=== PATIENT | male | born 1955 | race Caucasian/White ===

== ENCOUNTER → 2016-09-14 | Outpatient (CLI) | payer OTHER ==
--- NOTE | 2016-09-14 13:28 | DIAGNOSTIC IMAGING REPORT ---
RIGHT HAND MIN 3 VIEWS CLINICAL HISTORY: Right hand pain COMPARISON: None. DISCUSSION: No acute fractures are visualized. There is an old deformity involving the proximal phalanx of the fifth finger. There is an old ununited ulnar styloid avulsion. There are no erosive or destructive changes. IMPRESSION: 1. No acute fractures. 2. No evidence of erosive disease. Electronically signed by: Jeffery Gallo M.D. 09/14/2016 1:26 PM Dictated Date/Time: 09/14/2016 1:25 PM
== END | disposition home or self-care (01) ==
LOC: C.RDSM 12:51
PROVIDERS: ATTEND Family Medicine
DX: M79.641 Pain in right hand (principal)

== ENCOUNTER → 2016-09-28 | Outpatient (CLI) | payer OTHER ==
--- NOTE | 2016-09-28 11:16 | DIAGNOSTIC IMAGING REPORT ---
RIGHT HAND 3 VIEWS CLINICAL HISTORY: Right hand injury. FINDINGS: 3 views of the right hand are compared to study dated 09/14/2016. The skeletal structures are well mineralized. No fracture is identified. Minimal osteoarthritic change is noted involving the interphalangeal joints and the first carpometacarpal joint. No erosive change is identified. The overlying soft tissues are within normal limits. IMPRESSION: No acute bony abnormality is identified in the right hand. Electronically signed by: Kevin Ace M.D. 09/28/2016 11:15 AM Dictated Date/Time: 09/28/2016 11:14 AM
== END | disposition home or self-care (01) ==
LOC: C.RDSM 10:25
PROVIDERS: ATTEND Family Medicine
DX: M79.643 Pain in unspecified hand (principal)

== ENCOUNTER → 2016-10-23 | Outpatient (CLI) | payer OTHER | END | disposition home or self-care (01) | LOC: C.RDSM 08:48 | PROVIDERS: ATTEND Physical Medicine & Rehabilitation Sports Medicine | DX: M25.561 Pain in right knee (principal) ==

== ENCOUNTER → 2017-02-20 | Outpatient (CLI) | payer OTHER ==
[2017-02-20 09:54] LABS: ESTIMATED AVERAGE GLUCOSE 94 mg/dl; HA1C FLAG Normal (Normal)
[2017-02-20 10:01] LABS: ALT/SGPT 39 U/L (12-78); AST/SGOT 29 U/L (15-37); BLOOD UREA NITROGEN 23 mg/dl (7-18); BUN/CREATININE RATIO 25.2 (10-20); CARBON DIOXIDE 27 mmol/L (21-32); CHLORIDE 108 mmol/L (98-107); CREATININE 0.91 mg/dl (0.60-1.40); GLUCOSE 87 mg/dl (70-99); POTASSIUM 4.1 mmol/L (3.5-5.1); SODIUM 144 mmol/L (136-145)
[2017-02-20 10:12] LABS: ALB/GLOB RATIO 1.2 (0.9-2); ALKALINE PHOSPHATASE 95 U/L (45-117); CHOLESTEROL 214 mg/dl (0-200); CHOLESTEROL/HDL RATIO 4.7; HDL CHOLESTEROL 46 mg/dl; LDL CHOLESTEROL CALCULATED 135 mg/dl; TRIGLYCERIDES 167 mg/dl (0-150); VERY LOW DENSITY LIPOPROT CALC 33 mg/dl
[2017-02-20 13:22] LABS: CALCIUM 9.2 mg/dl (8.5-10.1)
== END | disposition home or self-care (01) ==
LOC: C.LAB 08:13
PROVIDERS: ATTEND Nurse Practitioner
DX: R73.01 Impaired fasting glucose (principal); E03.9 Hypothyroidism, unspecified; E78.5 Hyperlipidemia, unspecified; E80.4 Gilbert syndrome

== ENCOUNTER → 2017-03-07 | Outpatient (CLI) | payer OTHER ==
[2017-03-07 14:39] LABS: BASO % 0.2 %; BASO ABS # 0.02 K/uL (0-0.2); COMPLETE YES; EOS % 0.5 %; HEMATOCRIT 47.1 % (42-52); IG% 0.6 %; LYMPH % 21.7 %; LYMPH ABS # 2.09 K/uL (1.2-3.4); MEAN CELL VOLUME 88.5 fL (80-100); MEAN CORPUSCULAR HEMOGLOBIN 32.3 pg (25-34); MEAN CORPUSCULAR HGB CONC 36.5 g/dl (32-36); MEAN PLATELET VOLUME 9.6 fL (7.4-10.4); MONO % 7.5 %; NEUT % 69.5 %; PLATELET COUNT 231 K/uL (130-400); RED BLOOD COUNT 5.32 M/uL (4.7-6.1); WHITE BLOOD COUNT 9.64 K/uL (4.8-10.8)
[2017-03-12 01:34] LABS: HEPATITIS BE ANTIBODY TC 556 Nonreactive
== END | disposition home or self-care (01) ==
LOC: C.LAB 13:23
PROVIDERS: ATTEND Nurse Practitioner
DX: Z11.59 Encounter for screening for other viral diseases (principal); E80.6 Other disorders of bilirubin metabolism

== ENCOUNTER → 2017-03-09 | Outpatient (CLI) | payer OTHER ==
--- NOTE | 2017-03-09 08:10 | DIAGNOSTIC IMAGING REPORT ---
(LIVER) ABDOMEN LIMITED CLINICAL HISTORY: E80.6 Hyperbilirubinemia COMPARISON STUDY: CT scan dated 03/04/2009 FINDINGS: The pancreas was poorly visualized. No focal hepatic masses were visualized. There is no ductal dilatation. The common bile duct measured 5 mm. No gallstones are identified. There is no right-sided hydronephrosis. IMPRESSION: 1. Ultrasonographically normal gallbladder 2. Ultrasonographically normal liver. No evidence of ductal dilatation 3. Nondiagnostic evaluation of the pancreas Electronically signed by: Jeffery Gallo M.D. 03/09/2017 8:09 AM Dictated Date/Time: 03/09/2017 8:07 AM
== END | disposition home or self-care (01) ==
LOC: C.ULTRBC 07:32
PROVIDERS: ATTEND Nurse Practitioner
DX: E80.6 Other disorders of bilirubin metabolism (principal)

== ENCOUNTER → 2017-08-29 | Outpatient (CLI) | payer OTHER ==
[2017-08-29 10:12] LABS: BLOOD UREA NITROGEN 19 mg/dl (7-18); CALCIUM 8.8 mg/dl (8.5-10.1); CARBON DIOXIDE 28 mmol/L (21-32); CREATININE 0.85 mg/dl (0.60-1.40); GLUCOSE 87 mg/dl (70-99); POTASSIUM 4.2 mmol/L (3.5-5.1); SODIUM 138 mmol/L (136-145)
[2017-08-29 10:16] LABS: CHOLESTEROL 184 mg/dl (0-200); LDL CHOLESTEROL CALCULATED 104 mg/dl
== END | disposition home or self-care (01) ==
LOC: C.LAB 08:11
PROVIDERS: ATTEND Nurse Practitioner
DX: E78.5 Hyperlipidemia, unspecified (principal); E80.6 Other disorders of bilirubin metabolism

== ENCOUNTER 2022-09-18 07:44 | Observation (INO) ==
--- NOTE | 2022-09-01 14:39 | PAT Medication Instructions ---
Medication Instructions Date of Service September 01, 2022 Home Medications Medication Instructions Recorded varicella-zoster glycoE vacc-AS01B 0.5 ml IM .COMPLEX #1 ea 10/06/19 adj(PF) 50 mcg/0.5 mL IM susp, kit (Shingrix (PF)) diclofenac sodium 1 % topical gel 2 gm topical QID #100 grams 03/16/20 hydrocortisone 1 %-pramoxine 1 % 1 applic LA QID PRN hemorrhoids 12/03/20 rectal foam (Proctofoam HC) #10 grams promethazine-DM 6.25 mg-15 mg/5 mL 5 ml PO Q6H PRN cough #473 mL 12/03/20 oral syrup glucosamine 750 py-vvpordstify-vrq no1 644 mg-C 30 mg-kirstie 1 mg tablet (Osteo Bi-Flex Triple Strength) 2 tab PO QAM multivitamin 1 tab PO QAM naproxen sodium 220 mg capsule (Aleve) 220 mg PO BID PRN varicella-zoster glycoE [id number]-AS01B adj(PF) 50 mcg/0.5 mL IM susp, kit (Shingrix (PF)) 0.5 ml IM .COMPLEX diclofenac sodium 1 % topical gel 2 gm topical QID hydrocortisone 2.5 % rectal cream with applicator 1 ea topical BID PRN hydrocortisone 1 %-pramoxine 1 % rectal foam (Proctofoam HC) 1 applic LA QID PRN promethazine-DM 6.25 mg-15 mg/5 mL oral syrup 5 ml PO Q6H PRN psyllium husk 3.4 gram/5.4 gram oral powder (Metamucil) 1 tbsp PO PM diltiazem HCl 180 mg capsule,extended release 24 hr 180 mg PO PM levothyroxine 75 mcg tablet 75 mcg PO QAM lisinopril 10 mg tablet 10 mg PO PM omeprazole 40 mg capsule,delayed release 40 mg PO PM rosuvastatin 20 mg tablet 20 mg PO PM tamsulosin 0.4 mg capsule 0.4 mg PO QAM ASK your surgeon for instructions naproxen sodium 220 mg capsule (Aleve) 220 mg PO BID PRN STOP taking 2 weeks before surgery glucosamine 750 sd-qzqvnbpwuqu-dvr no1 644 mg-C 30 mg-kirstie 1 mg tablet (Osteo Bi-Flex Triple Strength) 2 tab PO QAM multivitamin 1 tab PO QAM STOP taking 24 hours before surgery diclofenac sodium 1 % topical gel 2 gm topical QID hydrocortisone 2.5 % rectal cream with applicator 1 ea topical BID PRN hydrocortisone 1 %-pramoxine 1 % rectal foam (Proctofoam HC) 1 applic LA QID PRN DO NOT take the morning of surgery promethazine-DM 6.25 mg-15 mg/5 mL oral syrup 5 ml PO Q6H PRN Take morning of surgery With a small sip of water, OTHERWISE NOTHING TO EAT OR DRINK AFTER MIDNIGHT: levothyroxine 75 mcg tablet 75 mcg PO QAM tamsulosin 0.4 mg capsule 0.4 mg PO QAM Take evening before surgery psyllium husk 3.4 gram/5.4 gram oral powder (Metamucil) 1 tbsp PO PM diltiazem HCl 180 mg capsule,extended release 24 hr 180 mg PO PM lisinopril 10 mg tablet 10 mg PO PM omeprazole 40 mg capsule,delayed release 40 mg PO PM rosuvastatin 20 mg tablet 20 mg PO PM Other Notes If you have any questions please call us at [phone] or [phone] or [phone] or [phone]
--- NOTE | 2022-09-08 09:15 | Anesthesiology Consultation ---
Date of Service September 08, 2022 Assessment & Plan (1) Encounter for pre-operative examination: - COVID screening: Per assessment on 09/08: No known COVID-19 positive contacts or current COVID-19 related symptoms. Travel screen negative. Patient vaccinated. At surgeon discretion if preop Covid testing being done. - Outpatient joint assessment: Pt currently scheduled for inpatient pathway. Reviewed with Dr. Delgado If surgeon requests review for outpatient joint pathway, patient not recommended candidate for outpatient joint program from anesthesia standpoint. - Cardiology office visit (12/05/21): "Patient remains physically active and exercises on a daily basis. He served in the for 21 years, was a long distance runner in the past, and he still walks a minimum of 3.5 to 4 miles per day and he lifts weights on a daily basis -- but now he wears a brace on his right knee due to some knee problems. He states that his walking route includes a rather large hill on the way back to his home -- which he can easily climb without limiting cardiopulmonary symptoms at any time. Patient has not experienced any angina pectoris or anginal equivalent symptoms, overt signs or symptoms heart failure, nor has he had any symptoms suggestive of dysrhythmia. His blood pressure appears to be well controlled. He does not experience claudication despite his active lifestyle. We reviewed his most recent Echocardiogram 11/07/21 which showed regression of his LVH, now it is moderate LVH and there is no evidence of LVOT obstruction. LVEF 65% to 70% with normal wall motion, no significant valvular abnormalities.. Patient was advised to do the following.. Continue exercise program and progress as tolerated.. Maintain a heart healthy diet.. Continue Rosuvastatin 20 mg daily.. Continue Lisinopril 10 mg daily.. Continue Diltiazem CD 180 mg daily." Mild dynamic LVOT obstruction noted on remote stress echo 2019- no evidence on more recent echo 10/2021. F/U one year recommended. Repeat Echo in 2 years. - Cardiology note (07/06/22): Written in regards to parotidectomy- done 06/2022 at [facility] > 06/2022 EKG reviewed, "Patient is cleared for surgery.. No need for further workup at this time" - Murmur: III/ systolic murmur LUSB noted. No murmur appreciated per 11/2021 ca rdiology office visit. Reviewed with Dr. Delgado- requesting cardiology advisement. Spoke with Talib Phan 09/08/22- he feels it would be reasonable to update echo prior to surgery if possible. Echo scheduled 09/12 ([facility])- awaiting report. Chart Review Chart Review: Patient seen in Pre Admission Testing Teaching & Discussion Pre-Anesthesia Teaching/Discussion Notes: Instructed NPO after midnight before surgery,except medications with 15 cc of water. Medication instructions provided according to the PAT guidelines. History Surgery Operation Date: 09/18/22 12:30 Proposed Procedures p Right Total Knee Arthroplasty - Neal Rae MD Height/Weight Height: 5 ft 8 in Weight: 86 kg Allergies Allergy/AdvReac Type Severity Reaction Status Date / Time No Known Drug Allergies Allergy Verified 09/01/22 08:54 Medications Home Medications Medication Instructions Recorded Confirmed Last Taken glucosamine 750 ig-qkdqqduhhvk-tkr 2 tab PO QAM 01/23/19 09/01/22 Unknown no1 644 mg-C 30 mg-kirstie 1 mg tablet (Osteo Bi-Flex Triple Strength) multivitamin 1 tab PO QAM 10/06/19 09/01/22 Unknown naproxen sodium 220 mg capsule 220 mg PO BID PRN Pain 10/06/19 09/01/22 Unknown (Aleve) varicella-zoster glycoE vacc-AS01B 0.5 ml IM .COMPLEX #1 ea 10/06/19 09/01/22 Unknown adj(PF) 50 mcg/0.5 mL IM susp, kit (Shingrix (PF)) diclofenac sodium 1 % topical gel 2 gm topical QID #100 grams 03/16/20 09/01/22 Unknown hydrocortisone 2.5 % rectal cream 1 ea topical BID PRN Pain 05/19/20 09/01/22 Unknown with applicator hydrocortisone 1 %-pramoxine 1 % 1 applic IN QID PRN hemorrhoids 12/03/20 09/01/22 Unknown rectal foam (Proctofoam HC) #10 grams promethazine-DM 6.25 mg-15 mg/5 mL 5 ml PO Q6H PRN cough #473 mL 12/03/20 Unknown oral syrup psyllium husk 3.4 gram/5.4 gram 1 tbsp PO PM 12/05/21 09/01/22 Unknown oral powder (Metamucil) diltiazem HCl 180 mg 180 mg PO PM 09/01/22 09/01/22 Unknown capsule,extended release 24 hr levothyroxine 75 mcg tablet 75 mcg PO QAM 09/01/22 09/01/22 Unknown lisinopril 10 mg tablet 10 mg PO PM 09/01/22 09/01/22 Unknown omeprazole 40 mg capsule,delayed 40 mg PO PM 09/01/22 09/01/22 Unknown release rosuvastatin 20 mg tablet 20 mg PO PM 09/01/22 09/01/22 Unknown tamsulosin 0.4 mg capsule 0.4 mg PO QAM 09/01/22 09/01/22 Unknown Past Medical History Medical History Arthritis Barretts esophagus BPH (benign prostatic hyperplasia) Chronic reflux esophagitis [place] syndrome History of COVID-19 01/2022 Hyperlipidemia Hypertension Hypothyroidism LVH (left ventricular hypertrophy) Follows with [facility] Leach's ring Exercise / Class Metabolic Activity II 4-5 Yardwork/Stairs/Walk up hill Past Family History Family History Mother Breast cancer Father Dementia Denies family history of Ovarian cancer Prostate cancer Myocardial infarction Colorectal cancer Past Surgical History Surgical History H/O basal cell carcinoma excision Multiple ("different locations on body") History of colonoscopy History of esophagogastroduodenoscopy (EGD) Hx of surgical procedure cyst to right neck removed ([facility] 06/2022) S/P hernia surgery x5 S/P knee surgery right arthroscopy S/P vasectomy S/P wisdom tooth extraction Past Anesthesia History No Family Hx of Anesthesia Complications and Other (Amnesia after colonoscopy) History of PONV No Hx of PONV and No Hx of Motion Sickness Social History Smoking Status: Never smoker Do You Dip or Chew Tobacco: No Hx Alcohol Use: Yes Alcohol type: wine alcohol intake frequency: 0-2 drinks per day (6 oz per day wine) Hx Substance Use: No substance use type: does not use Review of Systems Chronic cough r/t post nasal drip x years- unchanged. Patient denies chest pain, shortness of breath, dyspnea on exertion, fever, chills, cough, wheezing, palpitations. Physical Exam Vital Signs VITALS BP 153/82 P 73 TEMP 98.2 SP02 94%RA RESP 16 PHYSICAL Full cervical extension range of motion. Full TMJ range of motion. TMD 3.5 finger breaths Mallampati Score 3 Dentition: intact, + crowns (side/molar) Lungs: clear throughout to auscultation Cardiac: regular rate and rhythm, III/ LUSB systolic murmur Spine: normal Carotid arteries: negative bruit Extremities: no edema Lab Results Anesthesia Preop Results Results Anesthesia Widget: WBC 8.80 K/ul (4.8-10.8) 09/08/22 Hgb 16.9 g/dl (14.0-18.0) 09/08/22 Hct 47.1 % (40.1-51.0) 09/08/22 Plt 231 K/uL (130-400) 09/08/22 Na 139 mmol/L (136-145) 09/08/22 K 4.4 mmol/L (3.5-5.1) 09/08/22 Cl 106 mmol/L (98-107) 09/08/22 CO2 27 mmol/L (21-32) 09/08/22 BUN 14 mg/dl (6-23) 09/08/22 Creat 0.84 mg/dl (0.6-1.4) 09/08/22 Glucose Level 125 mg/dl (70-99(Fasting)) H 09/08/22 PT 10.4 Seconds (9.0-12.0) 09/08/22 PTT 27.1 Seconds (21.0-31.0) 09/08/22 INR 1.0 (0.9-1.1) 09/08/22 Blood Type O Positive 09/08/22 Antibody Screen NEGATIVE 09/08/22 Testing Electrocardiogram Date: 06/28/22 Normal sinus rhythm at 70 bpm. Possible LAE. Chest X-Ray Date: 09/08/22 FINDINGS: Cardiomediastinal and hilar silhouettes are within normal limits. No pneumothorax, pleural effusion, airspace consolidation or overt pulmonary edema. Mild hyperinflation. Bones appear grossly intact. IMPRESSION: No acute process. Echocardiogram Date: 10/28/21 EF 65 to 70%. Moderate concentric LVH. Echo findings are not consistent with LV outflow obstruction. Mild LAD. Grade 1 diastolic dysfunction. No significant valvular disease. No regional wall motion abnormality. Stress Test Date: 08/04/20 Type: exercise Negative exercise stress echo/ECG for ischemia 94% MPHR. No significant ectopic at rest and with stress. Resting echo with normal biventricular systolic function, moderate to severe LVH, normal chamber dimensions, mild MR, no significant valvular abnormalities, and minimal LV outflow tract obstruction. COVID-19 Risk Screen Screening Information COVID-19 Screen Date: 09/08/22 Exposure 21 Days Family/Household +COVID Last 21 Days: No Exposure 10 Days Any COVID Exposure Last 10 Days: No Symptoms Last 10 Days Experienced COVID Sx Last 10 Days: No + COVID 0-90 Days COVID + in Last 0-90 Days: No
[~2022-09-18 07:44] MED LIST: ACETAMINOPHEN 500 MG TAB PO SCH; BUPIVACAINE 0.5 % 5 MG/1 ML PF 10ML VIAL ONE; BUPIVACAINE LIPOSOME/PF 266 MG, BUPIVACAINE/EPINEPHRINE 50 ML, SODIUM CHLORIDE 0.9% 30 ... INFIL SCH; CeleBREX 200 MG CAP PO SCH; FAMOTIDINE 20 MG TAB PO SCH; LR 60ML/HR IV SCH; METOCLOPRAMIDE HCL 10 MG TABLET PO SCH; ROPIVACAINE 0.5% 5 MG/ML 30 ML VIAL ONE; Scopolamine 1 MG TDSY TD SCH; TRANEXAMIC ACID 1,000 MG **IV Intra-op IV SCH; ceFAZolin 2000MG 2,000 MG/15 ML SYR IV SCH
[2022-09-18] MEDS ORDERED: MIDAZOLAM HCL 1 MG/ML 2ML VIAL ONE (08:20)
[2022-09-18] MEDS ORDERED: PROPOFOL IV EMULSION 10 MG/ML 20 ML VIAL IV ONE ×2 (08:23→08:27)
[2022-09-18] MEDS ORDERED: HYDROmorphone INJ 2 MG/ML SYR/VIAL IV PRN (08:25)
[2022-09-18] MEDS ORDERED: ATROPINE SULFATE 0.1 MG/ML 10ML SYR IV PRN (08:25)
[2022-09-18] MEDS ORDERED: ONDANSETRON INJ 2 MG/ML 2 ML VIAL IV PRN ×2 (08:25→12:24)
[2022-09-18] MEDS ORDERED: ePHEDrine sulfate 50 MG/ML AMP IV PRN (08:25)
[2022-09-18] MEDS ORDERED: fentaNYL citrate 100 MCG/2 ML VIAL IV PRN (08:25)
--- NOTE | 2022-09-18 09:10 | History & Physical Bridge Note ---
Date of Service September 18, 2022 History & Physical Bridge Note I have examined the patient, reviewed the History & Physical and in the interval since the performance of the History & Physical I have noted the following changes of clinical significance: no changes noted
[2022-09-18] MEDS ORDERED: BUPIVACAINE/EPINEPHRINE 0.25% 1:200,000 30 ML VIAL ONE (09:13)
[2022-09-18] MEDS ORDERED: SODIUM CHLORIDE 0.9% PF 50 ML VIAL ONE (09:14)
[2022-09-18] MEDS ORDERED: BUPIVACAINE LIPOSOME 1.3% 266 MG/20 ML VIAL ONE (09:14)
[2022-09-18] MEDS ORDERED: GLYCOPYRROLATE 0.2 MG/ML VIAL ONE (09:47)
[2022-09-18] MEDS ORDERED: ePHEDrine sulfate 50 MG/ML AMP ONE (10:33)
--- NOTE | 2022-09-18 11:28 | Operative Report ---
PG Post Operative Report Pre & Post Diagnosis Operation Date: 09/18/22 10:40 Pre-Op Diagnosis: Right Knee Advanced Degenerative Joint Disease Post-Op Diagnosis: Right Knee Advanced Degenerative Joint Disease I identified the patient and participated in the time-out.: Yes Procedure Operation Date: 09/18/22 10:40 Actual Procedures p Right Total Knee Arthroplasty(Right) - Neal Rae MD Surgeon Neal Rae MD Pest Control Supervisor Kenton Adair PA-C Estimated Blood Loss 50 Findings Consistent with Post-Op Diagnosis Operative findings were advanced right knee lateral compartment DJD. That he did have full-thickness cartilage loss in the lateral femoral condyle lateral tibial plateau. There was no significant eburnation. He had a varus deformity to his tibia. Small knee joint effusion. Small osteophytes. Fluids 1200 cc Specimens Right knee sent for pathology Drains None Complications none Disposition Accompanied Patient To Recovery: No Indications Patient is a [place] 66-year-old gentleman has had a several year history of gradual progressive increased right knee pain discomfort. Is been through extensive conservative care which became less successful over time. X-rays show well moderate to advanced lateral compartment DJD. MRI was evaluated to when he had significant marrow edema of the laterally as well as an extruded lateral meniscus. He failed conservative treatment electricity with total knee arthroplasty. Description of Procedure Operative implants consist of: 1 Biomet Vanguard size 70 right posterior stabilized femoral component. 2. Biomet size 71 tibial tray. 3. 10 mm posterior stabilized polyethylene insert. 4. 31 x 8 all Paller patella. The patient was taken the operating, identified, placed on the operating table supine position protectors were properly padded. IV antibiotics arrived by anesthesia team. A spinal anesthetic and abductor canal block had provided in the holding area. Aiken catheter was placed in sterile fashion. Right thigh high tourniquet was then placed in the right lower extremities then prepped and draped in usual sterile fashion. The right leg was elevated exsanguinated with use of an Esmarch and the tourniquet was set at 300 mmHg. An anterior approach of the right knee was then performed to longitudinal incision centered over the patella. Sharp dissection was carried through subcutaneous this down the extensor mechanism. A medial parapatellar arthrotomy incision was made. Some subperiosteal dissection was carried out medially. The fat pad was resected from Neath patella tendon. Lateral patellofemoral ligament was released. Patella subluxated laterally and the knee was flexed. The osteophytes were taken off distal femur. The ACL and PCL were then released from distal femur the tibia subluxated anteriorly. The external tibial alignment jig was then placed in the interface the tibia and adjusted 12 mm medially. Proximal tibial cut was made removed about 2 mm bone from the medial side. He did have a fairly significant varus the knee with but fairly minimal medial wear. The tibia was then sized to a size 71. Attention drawn the femur. The distal femur examined the sharp drill. Intramedullary canal was suction. A right 5 degree valgus cutting guide was placed. The distal femoral cutting block was pinned in place. Distal femoral cut was made to take an additional 3 mm of bone off distal femur. The femur was then sized to a size 70. The AP cutting block was pinned parallel to the epicondylar axis which was 5 degrees of external rotation. The anterior cut, anterior chamfer, posterior cut, posterior chamfer cuts were made. The box cutting guide was placed in the just slight lateral. The box cut was made. The knee was flexed. The remnants of the medial lateral menisci were excised. The osteophytes were taken off the posterior aspect of femur. A trial femoral component was placed. The tibial tray was pinned in maximum external rotation and the drill and stem punch were used to create defect in the proximal tibia for the tibial tray. The knee was then trialed and the 10 mm insert fit most appropriately. Attention drawn the patella. The patella was cleaned of all soft tissues. Patella thickness measured 25 mm in thickness was cut down to 15. Was sized to a size 31 patella. The lug holes were drilled for 31 patella. The lateral osteophyte was removed. Patella button was placed. Knee was taken through range of motion patella tracked nicely with no thumbs test. Attention drawn to placing permanent components. Nupathe all trial components were removed. Bone plug was placed in the distal femur limit blood loss. Double batch Palacos G cement was mixed. A Biomet Vanguard size 70 right posterior stabilized femoral component, a size 71 tibial tray, 10 mm posterior stabilized polyethylene insert, and a 31 x 8 all Paller patella then cemented in place. The knee was brought out into full extension until cement hardened. Final cement check was then performed. Pericapsular tissues were injected with total of 100 cc of combination of 20 cc of Exparel, 30 cc normal saline, 50 cc of quarter percent Marcaine with epinephrine. Patient did receive 1 g tranexamic acid. The tourniquet was then let down for final tourniquet time of 54 minutes. Hemostasis reduced electrocautery. Extensor mechanism closed with combination 1 PDS suture #1 Vicryl suture in [id number] fashion. Extensor mechanism checked found to be intact with subcutaneous tissue then closed with 2 Dexon suture in buried interrupted fashion skin was closed skin shi. Leg was then cleaned and dried a sterile dressing was Xeroform, 4 x 4's, sterile cast padding, Jose bandage were applied. Patient then transferred to the recovery room in stable condition. Patient tolerated procedure well no complications. Kenton Adair, my physician school psychologist assistant, was present for the entire procedure. His assistance was essential and required for appropriate patient positioning, prepping and draping, surgical exposure, performing the technical details of the operation, placement the implants, closure of the wound, and placement of the sterile bandage. I attest to the content of the Intraoperative Record and any orders documented therein. Any exceptions are noted below.
--- NOTE | 2022-09-18 12:06 | Anesthesiology Progress Note ---
Date of Service September 18, 2022 Anesthesia Post Procedure Vital Signs Vital Signs: Temp Pulse Pulse Resp BP Pulse Ox O2 Del Method 09/18/22 11:40 83 20 100/59 L 97 Oxymask 09/18/22 11:50 36.8 C 79 22 111/71 97 Room Air 09/18/22 11:30 87 22 90/64 L 96 Oxymask 09/18/22 11:20 36.4 C L 94 H 18 97/62 L 96 Oxymask 09/18/22 08:07 36.6 C 83 20 152/92 H 97 Room Air O2 Flow Rate 09/18/22 11:40 3 09/18/22 11:50 09/18/22 11:30 3 09/18/22 11:20 5 09/18/22 08:07 Transfer of Care Handoff Completed per policy Notes Mental Status: alert / awake / arousable and participated in evaluation Patient Amnestic to Procedure: Yes Nausea / Vomiting: adequately controlled Pain: adequately controlled Airway Patency, RR, SpO2: stable & adequate BP & HR: stable & adequate Hydration State: stable & adequate Neuraxial Anesthesia: was administered and sensory block is resolving Anesthetic Complications: no major complications apparent and Pt Satisfied with anesthetic care
--- NOTE | 2022-09-18 12:17 | XRay Report ---
XR knee RT 1 or 2V routine CLINICAL HISTORY: Surgical Post Op TECHNIQUE: 2 views of the right knee were obtained. Comparison: Comparison is made to knee radiographs 10/23/2016 FINDINGS: Patient is status post total knee arthroplasty with expected postsurgical changes including soft tiss ue swelling and subcutaneous emphysema. No periarticular lucency or hardware fracture is seen. IMPRESSION: Expected postoperative appearance status post placement of total knee arthroplasty. ACT 112: Negative or not required by law. Electronically signed by: Constantin Holt M.D. 09/18/2022 12:16 PM
[2022-09-18] MEDS ORDERED: oxyCODONE HCL IR 5 MG TAB (IMMEDIATE RELEASE) PO PRN (12:24)
[2022-09-18] MEDS ORDERED: ALUMINUM/MAGNESIUM SUSP 30 ML UDC PO PRN (12:24)
[2022-09-18] MEDS ORDERED: METOCLOPRAMIDE HCL INJ 5 MG/ML 2 ML VIAL IV PRN (12:24)
[2022-09-18] MEDS ORDERED: bisacodyL 10 MG SUPP PR PRN (12:24)
[2022-09-18] MEDS ORDERED: NON-FORMULARY MEDICATION (Varicella-Zoster Ge-As01b (Pf) [Shingrix (Pf)] 50 mcg/0.5 mL sus IM SCH (12:24)
[2022-09-18] MEDS ORDERED: HYDROCORTISONE PRAMOXINE PR PRN (12:24)
[2022-09-18] MEDS ORDERED: HYDROmorphone INJ 0.5 MG/0.5 ML SYR IV PRN (12:24)
[2022-09-18] MEDS ORDERED: MAGNESIUM HYDROXIDE SUSP 30 ML UDC PO PRN (12:24)
[2022-09-18] MEDS ORDERED: NALOXONE HCL 0.4 MG/1 ML VIAL/CARP IV PRN (12:24)
[2022-09-18] MEDS ORDERED: HYDROCORTISONE HC 2.5% CRM 30GM TUBE EXT PRN (12:47)
[2022-09-18] MEDS ORDERED: DEXTROMETHORPHAN PO PRN (12:49)
[2022-09-18] MEDS ORDERED: PROMETHAZINE PO PRN (12:49)
[2022-09-18] MEDS: SODIUM CHLORIDE 0.9% 1000ML 1,000 ML IV SCH ×2 (13:00→22:03)
[2022-09-18] MEDS: ACETAMINOPHEN 500 MG TAB PO SCH ×2 (14:13→22:01)
[2022-09-18] MEDS: KETOROLAC TROMETHAMINE 15 MG/ML VIAL IV SCH ×2 (14:13→18:09)
[2022-09-18] MEDS: ASCORBIC ACID 500 MG TAB PO SCH (16:48)
[2022-09-18] MEDS: Scopolamine CHECK PATCH PLACEMENT SCH (16:49)
[2022-09-18] MEDS: ceFAZolin 2000MG 2,000 MG/15 ML SYR IV SCH (16:49)
[2022-09-18] MEDS ORDERED: TRANEXAMIC ACID / 0.7% NACL 1,000 MG/100 ML BAG IV SCH (17:15)
[2022-09-18] MEDS: ASPIRIN 81 MG ECTAB PO SCH (20:40)
[2022-09-18] MEDS: DOCUSATE SODIUM 100 MG CAP PO SCH (20:41)
[2022-09-18] MEDS ORDERED: dilTIAZem HCL 180 MG CAPCR PO SCH (21:00)
[2022-09-18] MEDS ORDERED: PSYLLIUM or GUAR GUM FIBER POWDER PACKET PO SCH (21:00)
[2022-09-18] MEDS ORDERED: ROSUVASTATIN CALCIUM 20 MG TAB PO SCH (21:00)
[2022-09-18] MEDS ORDERED: PANTOprazole 40 MG TAB PO SCH (21:00)
[2022-09-18] MEDS ORDERED: SENNA 8.6 MG TAB PO SCH (21:00)
[2022-09-18] MEDS ORDERED: lisinopril 10 MG TAB PO SCH (21:00)
[2022-09-19] MEDS: KETOROLAC TROMETHAMINE 15 MG/ML VIAL IV SCH ×4 (00:10→18:09)
[2022-09-19] MEDS: Scopolamine CHECK PATCH PLACEMENT SCH ×3 (00:10→16:27)
[2022-09-19] MEDS: ceFAZolin 2000MG 2,000 MG/15 ML SYR IV SCH (00:10)
[2022-09-19] MEDS: ACETAMINOPHEN 500 MG TAB PO SCH ×2 (06:11→13:15)
[2022-09-19] MEDS ORDERED: LEVOTHYROXINE SODIUM 75 MCG TABLET PO SCH (06:30)
[2022-09-19 06:41] LABS: Hematocrit (blood only) 39.3 % (40.1-51.0); Hemoglobin 14.3 g/dl (14.0-18.0); Mean Corpuscular Hgb Conc 36.4 g/dL (32.0-36.0); Mean Corpuscular Volume 87.9 fL (80.0-100.0); Mean Platelet Volume 9.1 fL (9.4-12.4); Platelet Count 221 K/uL (130-400); RDW Coefficient of Variation 12.2 % (11.5-14.5); RDW Standard Deviation 39.8 fL (36.4-46.3); Red Blood Count 4.47 M/uL (4.63-6.08); White Blood Count 11.64 K/ul (4.8-10.8)
[2022-09-19 06:55] LABS: Calcium 8.3 mg/dl (8.5-10.1); Potassium 4.2 mmol/L (3.5-5.1)
[2022-09-19 07:01] LABS: BUN Creatinine Ratio 21.5 (10-20); Creatinine Clr Calc Pharmacy 95.5 ml/min; Est GFR (African American) 107.7 ml/min; Est GFR (Non-African American) 92.9 ml/min
[2022-09-19] MEDS: ASCORBIC ACID 500 MG TAB PO SCH ×2 (07:36→17:16)
[2022-09-19] MEDS: DOCUSATE SODIUM 100 MG CAP PO SCH (07:37)
[2022-09-19] MEDS: ASPIRIN 81 MG ECTAB PO SCH (07:37)
[2022-09-19] MEDS ORDERED: dexAMETHasone 10 MG in SYRINGE 0 ML IV SCH (08:00)
[2022-09-19] MEDS ORDERED: NON-FORMULARY MEDICATION (Multivitamin tablet) PO SCH (09:00)
[2022-09-19] MEDS ORDERED: MULTIVITAMIN TAB PO SCH (09:00)
[2022-09-19] MEDS ORDERED: NON-FORMULARY MEDICATION (Glucosam-Chon-Msm1-C-Mang-Bosw [Osteo Bi-Flex Triple Strength] 7 PO SCH (09:00)
[2022-09-19] MEDS ORDERED: TAMSULOSIN HCL 0.4 MG CAP PO SCH (09:00)
--- NOTE | 2022-09-19 09:52 | Progress Notes ---
DATE OF SERVICE: 09/19/2022. SUBJECTIVE: A 66-year-old gentleman who is postoperative day 1 from a right knee replacement. He is doing pretty well. Had little bit more painful this morning. No chest pain, no shortness of breath. Not feelin g dizzy or lightheaded. Hoping to go home. OBJECTIVE: VITAL SIGNS: Temperature is 36.5. Vital signs are stable. GENERAL: Shows a pleasant middle-aged male. He is walking around his room using a walker, doing pre tty well. LUNGS: Clear to auscultation. HEART: Regular rate and rhythm. ABDOMEN: Soft, nontender, nondistended. EXTREMITIES: Grossly neurovascularly intact except as follows. Examination of the right leg reveals the leg to be well aligned. Dressing is clean, dry and intact. He can dorsiflex and plantarflex his foot appropriately. LABORATORY DATA: Hemoglobin 14.3. Hematocrit 39.3. Electrolytes are stable. ASSESSMENT: A 66-year-old gentleman postoperative day 1 from right knee replacement, doing pretty well. Pain is controlled. He is neurologically intact. PLAN: 1. DVT prophylaxis includes thigh-high TEDs, SCDs, and aspirin twice a day. 2. PT, OT, weightbear as tolerated. Right total knee protocol. 3. Pain control, doing okay with current pain regimen. 4. Disposition: Plan is to discharge to home with some home health later today if he does okay in t herapy. Job ID: [id number]
[2023-08-18] MEDS ORDERED: LR 500ML BOLUS, THEN 15ML/HR IV SCH (06:00)
== END 2022-09-19 19:27 | disposition home health service (06) ==
LOC: 3E 07:44 → ASU 07:44
DX: M17.11 Unilateral primary osteoarthritis, right knee; Z79.899 Other long term (current) drug therapy; Z79.82 Long term (current) use of aspirin; Z79.890 Hormone replacement therapy